=== PATIENT | female | born 1990 | race Caucasian/White ===

== ENCOUNTER 2017-03-05 03:59 | Emergency (ER) | payer OTHER ==
[~2017-03-05 03:59] MED LIST: ALBU8.5H3 INH; CLON0.5T PO; PARO20TA55 PO
[2017-03-05 04:00] VITALS: BP 105/65
--- NOTE | 2017-03-05 04:18 | PHYS DOC ---
General Chief Complaint: CHEST PAIN Stated Complaint: CHEST PAIN Time Seen by MD: 04:05 Source: patient Problems: History of Present Illness Initial Comments Patient here for chest pain. Patient says she's had chest pain for the last 3-4 days. When asked what brought her in this time, she said she wanted to wait to see her own doctor tomorrow, but she felt like she simply couldn't wait. She describes her chest discomfort simply the pain. She is unable to describe it as a crampy sharp or pressure sensation. She says it's in the right central chest, then she says it's also the left central chest, in the left shoulder area, in the left arm, and then over into the left posterior lower chest area. She says the pain tends to move around between these different places doesn't seem to start in one place and go to another. She says she's felt hot and cold with hot flashes tonight. There's no chills. There is no runny nose or sore throat. She says she feels short of breath and she says she feels nauseated. She also says that she's broken out into a sweat with this. She initially denies a cough, but then tells me she is coughing up sputum that is half yellow and half white. She has no abdominal pain. There is no change in bowel or bladder habits. There is no focal extremity or neurologic complaints. Patient has no history of injury or trauma, nor lifting or straining the might involve the chest. Patient's done nothing for this at home over the last several days. She notes no increasing or decreasing factors. She does state she was seen a few weeks ago at [facility] for some abdominal problems which is felt due to constipation, she was told she had some sort of pinched nerve that was pushing up into her chest. She doesn't know any further details. Patient's past medical history is remarkable for anxiety. She is normally on clonazepam and his stopped taking this because it makes it difficult for her to drive, which is a reasonable concern to have. She says she normally has had her tubes tied, but because of irregular periods has had a Depo shot. She is a nonsmoker and nonuser of ethanol. Allergies: Coded Allergies: Sulfa (Sulfonamide Antibiotics) (Verified Adverse Reaction, Intermediate, 09/11/16) Past Medical History Medical History: no pertinent history Psychosocial History: anxiety Social History Smoker: non-smoker Alcohol: none Review of Systems All Other Systems: Reviewed and Negative Physical Exam General Appearance: WD/WN, no apparent distress Ear, Nose, Throat: normal ENT inspection, normal pharynx Neck: full range of motion, supple, normal inspection Respiratory: lungs clear, normal breath sounds, no respiratory distress, other Cardiovascular: regular rate, rhythm, no edema Gastrointestinal: non tender, soft, no organomegaly Back: no CVA tenderness, no vertebral tenderness Extremities: non-tender, normal inspection, no pedal edema Neurologic/Psychiatric: no motor/sensory deficits, alert, normal mood/affect, oriented x 3 Skin: normal color Lymphatic: no adenopathy Comments Generally this well-developed well-nourished white female in no acute distress. She is resting quite comfortably in the exam room. Vitals are as noted. Pertinent findings on physical exam shows ears and throat are grossly clear. Neck is supple without adenopathy or JVD. There's no meningeal signs. Chest is clear to auscultation bilaterally. The patient has equivocal chest wall tenderness to palpation over the left and right costal sternal junction, left inframammary area, and left upper chest. Interestingly, she says a palpation and all the sites actually increases the pain in the left posterior lower chest area. She actually has no tenderness, however, over the latter area. There is no signs of trauma or inflammation about the chest wall. Cardiac vascular exam shows regular rate and rhythm without murmur. The abdomen is soft and nontender without masses or organomegaly. There is no perineal findings. Back shows no CVA tenderness. Extremities show no rashes, cyanosis, or edema. No signs of DVT. Neurologic exam shows her to be awake alert oriented and cooperative. Her affect is mildly flat and she does look to be somewhat anxious. Remainder of physical exam is clinically unremarkable. Orders, Labs, Meds Old chart shows single prior ER visit for health related anxiety. EKG shows sinus 105. Normal axis. No acute ST or T-wave changes. Labs today show a stable CBC and chem profile. Cardiac enzymes are negative. D- dimer is mildly elevated at 0.8. Chest x-ray shows no acute changes per the emergency physician. 0520 Patient resting comfortably, asleep in the ED. When aroused she says her pain is basically unchanged. I discussed with the patient uncertain cause of her discomfort. She is on Depo-Provera Lee, she is a mildly elevated d-dimer with chest pain which cannot definitively be attributed to musculoskeletal or other obvious cause. I do think it's incumbent upon us to obtain a CT angiogram to rule out pulmonary emboli. I've ordered this study accordingly. Patient voices understanding of the need for study and is agreeable to the same. If the study is positive, the patient will certainly require admission. This is negative, I think it's still worth considering admitting the patient. I think she is at very low risk for cardiac disease, but given that she has chest pain of uncertain cause of may be worthwhile to bring her in for cardiac enzyme and stress testing for further reassurance. For anxiety may be playing a role as well. Patient is anticipated to be in the ED past the change of shift, and she will be checked out to the oncoming emergency physician with this plan in mind. I will discuss the change of shift with the patient as well. GIOVANNA REAL MD Mar 05, 2017 04:18
[2017-03-05] MEDS: ASPIRIN 325 MG TABLET PO ONE (04:33)
[2017-03-05 04:43] LABS: BASO % 1 % (0-3); EOS # 0.5 x10^3/uL (0.0-0.7); EOS % 11 % (0-3); HEMATOCRIT 38.2 % (36.0-47.0); HEMOGLOBIN 12.7 g/dL (12.0-15.5); LYMPH # 1.2 x10^3/uL (1.0-4.8); LYMPH % 25 % (24-48); MEAN CORPUSCULAR HEMOGLOBIN 30 pg (25-35); MEAN CORPUSCULAR HGB CONC 33 g/dL (31-37); MEAN CORPUSCULAR VOLUME 90 fL (79-100); MONO # 0.3 x10^3/uL (0.0-1.1); MONO % 7 % (0-9); NEUT # 2.8 x10^3uL (1.8-7.7); NEUT % 56 % (31-73); PLATELET COUNT 221 x10^3/uL (140-400); RED BLOOD COUNT 4.27 x10^6/uL (3.50-5.40); RED CELL DISTRIBUTION WIDTH 13.3 % (11.5-14.5); WHITE BLOOD COUNT 4.9 x10^3/uL (4.0-11.0)
[2017-03-05 04:48] LABS: BACTERIA,URINE 0 /HPF (0-FEW); BILIRUBIN,URINE NEG (NEG); CLARITY,URINE CLEAR; COLOR,URINE YELLOW; GLUCOSE,URINE NEG (NEG); NITRITE,URINE NEG (NEG); RBC,URINE 0 /HPF (0-2); SQUAMOUS EPITHELIAL CELL,UR FEW /LPF; UROBILINOGEN,URINE 0.2 mg/dL (0.2 mg/dL); WBC,URINE OCC /HPF (0-4)
[2017-03-05 05:01] LABS: ALBUMIN 3.7 g/dL (3.4-5.0); ALK PHOS 53 U/L (46-116); ALT (SGPT) 20 U/L (14-59); AMYLASE 53 U/L (25-115); ANION GAP 11 (6-14); AST (SGOT) 11 U/L (15-37); BLOOD UREA NITROGEN 10 mg/dL (7-20); BUN/CREATININE RATIO 14 (6-20); CALCIUM 8.4 mg/dL (8.5-10.1); CARBON DIOXIDE 25 mmol/L (21-32); CHLORIDE 105 mmol/L (98-107); CREATINE KINASE 70 U/L (26-192); CREATININE 0.7 mg/dL (0.6-1.0); GFR 100.4; GLUCOSE 102 mg/dL (70-99); LIPASE 138 U/L (73-393); POTASSIUM 3.6 mmol/L (3.5-5.1); SODIUM 141 mmol/L (136-145); TOTAL BILIRUBIN 0.4 mg/dL (0.2-1.0); TOTAL PROTEIN 7.3 g/dL (6.4-8.2)
[2017-03-05] MEDS: IOHEXOL 300 MG/ML 75 ML VIAL. IV ONE (05:38)
[2017-03-05] MEDS ORDERED: CONTRAST GIVEN MC PRN (05:45)
--- NOTE | 2017-03-05 06:03 | RAD ---
CTA chest with contrast Indication: Chest pain and elevated D-dimer. Axial imaging through the chest was performed after the administration of intravenous contrast. Multiplanar, 3D and MIP reformations were also performed. PQRS STATEMENT One or more of the following individualized dose reduction techniques were utilized for this study: 1.Automated exposure control. 2.Adjustment of the mA and/orkVaccording to patient size. 3.Use of iterative reconstruction technique. No prior studies are available for comparison. Evaluation of the pulmonary arterial system is without evidence of thromboembolism. No filling defects are seen. The thoracic aorta is without evidence of dissection. No pericardial or pleural fluid is identified. No parenchymal infiltrate, nodule or mass is detected. The upper abdomen is unremarkable. Impression: No evidence of pulmonary embolism or thoracic aortic dissection. Electronically signed by: Eduardo Mike MD (Mar 05, 2017 06:02:22)
--- NOTE | 2017-03-05 07:13 | RAD ---
Chest, 2 views, 03/05/2017: History: Chest pain The heart size and pulmonary vascularity are normal. No pulmonary infiltrates are seen. There is no evidence of pleural fluid. IMPRESSION: No acute cardiopulmonary abnormality is detected.
== END 2017-03-05 06:30 | disposition home or self-care (01) ==
LOC: ER 03:59
DX: R07.89 Other chest pain (principal); M25.512 Pain in left shoulder; R79.1 Abnormal coagulation profile; J45.909 Unspecified asthma, uncomplicated; F41.9 Anxiety disorder, unspecified; Z88.2 Allergy status to sulfonamides
CPT/HCPCS: 36415; 71020; 71275; 80053; 81001; 82150; 82553; 83690; 84484; 84703; 85027; 85379; 99285; Q9967; 81025

== ENCOUNTER 2017-04-23 19:45 | Emergency (ER) | payer OTHER ==
[~2017-04-23] VITALS: Ht 154.9 cm; Wt 59.0 kg
[~2017-04-23 19:45] MED LIST changes: -ALBU8.5H3 INH; +ALBU8.5H8 INH; -PARO20TA55 PO; +PARO20TA99 PO
[2017-04-23 19:55] VITALS: BP 95/52
[2017-04-23] MEDS ORDERED: IV NORMAL SALINE 1,000ML 1,000 ML IV ONE (20:30)
[2017-04-23] MEDS ORDERED: CONTRAST GIVEN MC PRN (20:30)
[2017-04-23] MEDS ORDERED: IOHEXOL 300 MG/ML 75 ML VIAL. IV ONE (20:45)
[2017-04-23 21:01] LABS: BASO % 1 % (0-3); EOS # 0.2 x10^3/uL (0.0-0.7); EOS % 4 % (0-3); HEMATOCRIT 36.8 % (36.0-47.0); HEMOGLOBIN 12.7 g/dL (12.0-15.5); LYMPH # 1.8 x10^3/uL (1.0-4.8); LYMPH % 36 % (24-48); MEAN CORPUSCULAR HEMOGLOBIN 30 pg (25-35); MEAN CORPUSCULAR HGB CONC 34 g/dL (31-37); MEAN CORPUSCULAR VOLUME 87 fL (79-100); MONO # 0.3 x10^3/uL (0.0-1.1); MONO % 7 % (0-9); NEUT # 2.6 x10^3uL (1.8-7.7); NEUT % 53 % (31-73); PLATELET COUNT 217 x10^3/uL (140-400); RED BLOOD COUNT 4.21 x10^6/uL (3.50-5.40); RED CELL DISTRIBUTION WIDTH 12.9 % (11.5-14.5)
[2017-04-23 21:11] LABS: ALBUMIN 3.7 g/dL (3.4-5.0); ALBUMIN/GLOBULIN RATIO 1.1 (1.0-1.7); CALCIUM 8.7 mg/dL (8.5-10.1); CREATININE 0.8 mg/dL (0.6-1.0); TOTAL BILIRUBIN 0.4 mg/dL (0.2-1.0); TOTAL PROTEIN 7.1 g/dL (6.4-8.2)
[2017-04-23 21:24] LABS: BILIRUBIN,URINE NEG (NEG); CLARITY,URINE CLEAR; COLOR,URINE YELLOW; GLUCOSE,URINE NEG (NEG); NITRITE,URINE NEG (NEG); UROBILINOGEN,URINE 1 mg/dL (0.2 mg/dL)
[2017-04-23 21:25] LABS: BACTERIA,URINE FEW /HPF (0-FEW); SQUAMOUS EPITHELIAL CELL,UR MOD /LPF; WBC,URINE OCC /HPF (0-4)
[2017-04-23 21:26] LABS: U PREG PATIENT NEGATIVE (NEG)
--- NOTE | 2017-04-23 21:36 | RAD ---
Exam performed: CT scan of the abdomen and pelvis with contrast Clinical Indication: Severe left-sided flank pain and cramping Date of Service: 04/07/2017 no priors Technique: Contiguous helical acquisitions are obtained from the lung bases to the pelvis during intravenous administration of [75 cc of Omnipaque 300]. In addition oral contrast was also given. Sagittal and coronal reformatted images were obtained and reviewed. CT abdomen findings: The lung bases appear essentially clear. Visualized heart is normal The liver, spleen ,gall bladder and pancreas appears unremarkable. Both adrenal glands and bilateral kidneys appear normal with symmetric excretion of contrast via both kidneys. The small bowel loops appear nondilated and unremarkable. There is no retroperitoneal lymphadenopathy or mass lesions. No bowel related inflammatory stranding is noted. There is scattered stool within the colon. Visualized appendix appears normal No obvious stranding is seen in the pericecal region. CT pelvis findings: The pelvic bowel loops are nondilated and unremarkable. The urinary bladder is well distended and normal . Uterus is anteverted. No definite masses seen. Interrogation of bone windows demonstrates no obvious bony abnormality. Sagittal and coronal reformatted images were obtained and reviewed which demonstrate no additional findings. Impression abdomen and pelvis : 1. No acute intra-abdominal or pelvic process is detected. 2. Diffuse scattered stool throughout the colon. Correlate clinically for constipation. PQRS Compliance Statement: One or more of the following individualized dose reduction techniques were utilized for this examination: 1. Automated exposure control 2. Adjustment of the mA and/or kV according to patient size 3. Use of iterative reconstruction technique Electronically signed by: Taya Dailey MD (04/23/2017 9:33 PM)
--- NOTE | 2017-04-23 21:52 | PHYS DOC ---
Past History Past Medical History: Anxiety Past Surgical History: No Surgical History Alcohol Use: None Drug Use: None Adult General Chief Complaint Chief Complaint: MENSTRUAL PAIN/CRAMPS HPI HPI Patient is a 26 year old F who presents with otherwise abdominal pain and some rectal bleeding after having a hard bowel movement. Patient states she's been constipated for the past couple days and today she had a couple hard bowel movements with blood on stool and on the toilet paper while wiping. Patient came in the emergency room for generalized abdominal pain. Patient denies any nausea or vomiting. She denies any fevers. Patient denies any dysuria. Patient has no other complaints. Pertinent exam findings: Mild tenderness to palpation left lower quadrant with bowel sounds heard in all 4 quadrants and the belly was soft, patient deferred rectal exam ED course: She was seen and evaluated in the emergency room a CBC, CMP, lipase, UA, urine break, CT scan abdomen and pelvis were ordered 8: Patient was reevaluated and she was feeling much better explained lab results and CT results the patient and recommended follow-up with her PCP for possible colonoscopy and over the counter stool softeners Pertinent results: CT scan was unremarkable for any acute abnormalities Lab work was unremarkable MDM: After reviewing the chart, CC/HPI/PMH, physical exam, [lab results], [ radiological results], I do not believe the patient has a intra-abdominal emergency warranting further workup and/or admission at this time. I do not believe the patient has a significant rectal bleed warranting emergent blood transfusion at this time. Recommended [id number] stool softeners to help with her constipation which is most likely causing her rectal bleeding. Recommended short-term follow-up with PCP for possible colonoscopy and further evaluation. Patient was comfortable being discharged home. Patient is stable to be discharged. Additional verbal discharge instructions were provided to the patient and that if symptoms get worse or any new symptoms arise that are worrisome to the patient she is to return to the emergency room immediately Review of Systems Review of Systems GEN: Denies fevers, chills, sweats HEENT: Denies blurred vision, sore throat CV: Denies chest pain RESP: Denies shortness of air, cough GI: Denies n/v/d, positive generalized abdominal tenderness and rectal bleeding NEURO: Denies confusion, dizziness MSK: Denies weakness, joint pain/swelling Current Medications Current Medications Current Medications Medications (Trade) Dose Ordered Sig/Greg Start Time Stop Time Status Last Admin Dose Admin Info (Do NOT chart on this entry -- for MONITORING) 1 each PRN DAILY PRN 04/23/17 20:30 04/25/17 20:29 Iohexol (Omnipaque 300 Mg/ml) 75 ml 1X ONCE 04/23/17 20:45 04/23/17 20:46 DC 04/23/17 20:54 75 ML Sodium Chloride 1,000 ml @ 1,000 mls/hr 1X ONCE 04/23/17 20:30 04/23/17 21:29 DC 04/23/17 20:35 1,000 MLS/HR Allergies Allergies Allergies Coded Allergies Type Severity Reaction Last Updated Verified Sulfa (Sulfonamide Antibiotics) Adverse Reaction Intermediate 09/11/16 Yes Physical Exam Physical Exam GEN.: No apparent distress. Alert and oriented. HEENT: Head is normocephalic, atraumatic NECK: Supple. LUNGS: CTAB. HEART: RRR, S1, S2 present. Peripheral pulses intact ABDOMEN: Soft, positive tender to palpation left lower quadrant. Positive bowel sounds. Rectal exam was deferred EXTREMITIES: Without any cyanosis. NEUROLOGIC: Normal speech, normal tone PSYCHIATRIC: Normal affect, normal mood. SKIN: No ulcerations Current Patient Data Vital Signs Vital Signs Date Time Temp Pulse Resp B/P (MAP) Pulse Ox O2 Delivery O2 Flow Rate FiO2 04/23/17 19:55 98.0 90 12 98 Room Air Lab Results Laboratory Tests Test 04/23/17 20:28 04/23/17 20:35 04/23/17 20:38 Urine Collection Type Unknown Urine Color Yellow Urine Clarity Clear Urine pH 6.0 Urine Specific [place] 1.025 Urine Protein Neg (NEG-TRACE) Urine Glucose (UA) Neg mg/dL (NEG) Urine Ketones (Stick) Neg mg/dL (NEG) Urine Blood Trace (NEG) Urine Nitrite Neg (NEG) Urine Bilirubin Neg (NEG) Urine Urobilinogen Dipstick 1 mg/dL (0.2 mg/dL) Urine Leukocyte Esterase Neg (NEG) Urine RBC 1-2 /HPF (0-2) Urine WBC Occ /HPF (0-4) Urine Squamous Epithelial Cells Mod /LPF Urine Bacteria Few /HPF (0-FEW) Urine Test Negative (NEG) White Blood Count 5.0 x10^3/uL (4.0-11.0) Red Blood Count 4.21 x10^6/uL (3.50-5.40) Hemoglobin 12.7 g/dL (12.0-15.5) Hematocrit 36.8 % (36.0-47.0) Mean Corpuscular Volume 87 fL (79-100) Mean Corpuscular Hemoglobin 30 pg (25-35) Mean Corpuscular Hemoglobin Concent 34 g/dL (31-37) Red Cell Distribution Width 12.9 % (11.5-14.5) Platelet Count 217 x10^3/uL (140-400) Neutrophils (%) (Auto) 53 % (31-73) Lymphocytes (%) (Auto) 36 % (24-48) Monocytes (%) (Auto) 7 % (0-9) Eosinophils (%) (Auto) 4 % (0-3) H Basophils (%) (Auto) 1 % (0-3) Neutrophils # (Auto) 2.6 x10^3uL (1.8-7.7) Lymphocytes # (Auto) 1.8 x10^3/uL (1.0-4.8) Monocytes # (Auto) 0.3 x10^3/uL (0.0-1.1) Eosinophils # (Auto) 0.2 x10^3/uL (0.0-0.7) Basophils # (Auto) 0.0 x10^3/uL (0.0-0.2) Sodium Level 142 mmol/L (136-145) Potassium Level 4.0 mmol/L (3.5-5.1) Chloride Level 108 mmol/L (98-107) H Carbon Dioxide Level 27 mmol/L (21-32) Anion Gap 7 (6-14) Blood Urea Nitrogen 13 mg/dL (7-20) Creatinine 0.8 mg/dL (0.6-1.0) Estimated GFR (Cockcroft-Gault) 86.0 BUN/Creatinine Ratio 16 (6-20) Glucose Level 88 mg/dL (70-99) Calcium Level 8.7 mg/dL (8.5-10.1) Total Bilirubin 0.4 mg/dL (0.2-1.0) Aspartate Amino Transferase (AST) 19 U/L (15-37) Alanine Aminotransferase (ALT) 39 U/L (14-59) Alkaline Phosphatase 69 U/L (46-116) Total Protein 7.1 g/dL (6.4-8.2) Albumin 3.7 g/dL (3.4-5.0) Albumin/Globulin Ratio 1.1 (1.0-1.7) Lipase 145 U/L (73-393) POC Urine HCG, Qualitative hcg negative (Negative) EKG EKG [] Radiology/Procedures Radiology/Procedures CT the abdomen and pelvis with contrast: Impression abdomen and pelvis : 1. No acute intra-abdominal or pelvic process is detected. 2. Diffuse scattered stool throughout the colon. Correlate clinically for constipation.[] Course & Med Decision Making Course & Med Decision Making Pertinent Labs and Imaging studies reviewed. (See chart for details) [] Dragon Disclaimer Dragon Disclaimer This chart was dictated in whole or in part using Voice Recognition software in a busy, high-work load, and often noisy Emergency Department environment. It may contain unintended and wholly unrecognized errors or omissions. Departure Departure: Impression: Primary Impression: Abdominal pain Additional Impressions: Rectal bleeding Constipation Disposition: 01 HOME, SELF-CARE Condition: IMPROVED Referrals: JU HEALY (PCP) Patient Instructions: Abdominal Pain (Nonspecific) Additional Instructions: Please follow up with her family doctor next 1-2 days and return if symptoms increase Problem Qualifiers Primary Impression: Abdominal pain Abdominal location: generalized Qualified Codes: R10.84 - Generalized abdominal pain Additional Impressions: Constipation Constipation type: unspecified constipation type Qualified Codes: K59.00 - Constipation, unspecified VAMSHI BA DO Apr 23, 2017 21:52
== END 2017-04-23 22:00 | disposition home or self-care (01) ==
LOC: ER 19:45
DX: K62.5 Hemorrhage of anus and rectum (principal); K59.00 Constipation, unspecified; Z88.2 Allergy status to sulfonamides
CPT/HCPCS: 36415; 74177; 80053; 81001; 81025; 83690; 85027; 96360; 99285; Q9967; J7030

== ENCOUNTER 2017-05-04 11:03 | Emergency (ER) | payer OTHER ==
[~2017-05-04] VITALS: Ht 154.9 cm; Wt 59.0 kg
--- NOTE | 2017-05-04 12:54 | RAD ---
CT of the head without contrast, 05/04/2017: History: Left facial numbness The ventricles are within normal limits in size. There is no shift of the midline structures. There is no evidence of acute intracranial hemorrhage or mass effect. IMPRESSION: The CT of the head without contrast reveals no significant abnormality. PQRS Compliance Statement: One or more of the following individualized dose reduction techniques were utilized for this examination: 1. Automated exposure control 2. Adjustment of the mA and/or kV according to patient size 3. Use of iterative reconstruction technique
--- NOTE | 2017-05-04 12:54 | RAD ---
PA and lateral chest radiographs 05/04/2017. Clinical History: Chest pain.. PA and lateral digital radiographs of the chest were obtained. Comparison study is dated 03/05/2017. The cardiac and mediastinal silhouettes are within normal limits in size and configuration. No pulmonary infiltrate is seen. No pleural effusion or pneumothorax is noted. The osseous structures are grossly intact. Impression: No radiographic evidence of active cardiopulmonary disease.
--- NOTE | 2017-05-04 12:58 | EKG ---
[address] [address] Test Date: 2017-05-04 Test Time: 12:35:16 Pat Name: FCO VAZQUEZ Department: Room: Gender: F Form Setter: GABRIELLA : 1990 Requested By: MARY ELLEN CHAPPELL Order Number: [id number] Reading MD: Evan Bucio Measurements Intervals [place] Rate: 80 P: 61 MS: 160 QRS: 44 QRSD: 82 T: 28 QT: 370 QTc: 430 Interpretive Statements SINUS RHYTHM NONSPECIFIC ST-T WAVE CHANGES. RI6.01 Unconfirmed report Compared to ECG 03/05/2017 04:07:38 Sinus tachycardia no longer present Electronically Signed On 05-07-2017 10:44:16 CDT by Evan Bucio
[2017-05-04 13:19] LABS: BASO % 0 % (0-3); EOS # 0.3 x10^3/uL (0.0-0.7); EOS % 5 % (0-3); HEMATOCRIT 37.8 % (36.0-47.0); HEMOGLOBIN 12.8 g/dL (12.0-15.5); LYMPH # 1.4 x10^3/uL (1.0-4.8); LYMPH % 26 % (24-48); MEAN CORPUSCULAR HEMOGLOBIN 30 pg (25-35); MEAN CORPUSCULAR HGB CONC 34 g/dL (31-37); MEAN CORPUSCULAR VOLUME 89 fL (79-100); MONO # 0.3 x10^3/uL (0.0-1.1); MONO % 5 % (0-9); NEUT # 3.5 x10^3uL (1.8-7.7); NEUT % 64 % (31-73); PLATELET COUNT 227 x10^3/uL (140-400); RED BLOOD COUNT 4.26 x10^6/uL (3.50-5.40); WHITE BLOOD COUNT 5.5 x10^3/uL (4.0-11.0)
[2017-05-04 13:28] LABS: ALBUMIN 3.7 g/dL (3.4-5.0); CALCIUM 8.7 mg/dL (8.5-10.1); CREATININE 0.6 mg/dL (0.6-1.0); GFR 119.9; POTASSIUM 3.8 mmol/L (3.5-5.1); TOTAL BILIRUBIN 0.5 mg/dL (0.2-1.0); TOTAL PROTEIN 7.3 g/dL (6.4-8.2)
[2017-05-04] MEDS ORDERED: CONTRAST GIVEN MC PRN (14:30)
[2017-05-04] MEDS ORDERED: IOHEXOL 300 MG/ML 75 ML VIAL. IV ONE (14:30)
--- NOTE | 2017-05-04 14:53 | PHYS DOC ---
Past History Past Medical History: Asthma Past Surgical History: Tubal ligation Alcohol Use: None Drug Use: None Adult General Chief Complaint Chief Complaint: MULTIPLE COMPLAINTS HPI HPI Patient is a 26 year old female who presents with 2 days of intermittent chest discomfort randomly travels the right to the left side of her chest nonexertional dull and nature mild shortness of breath associated with it. No cough fever or leg pain or swelling. No prior history of blood clots in legs or lungs. Not a smoker does not use control pills. Was seen at another local ER recently with a workup that we are not certain what the exact details were that she was sent home. She also complained of some paresthesias to the hands and feet to the lips are little bit to her face no headache or blurred vision no symptoms of since resolved. She has no complaints of chest pain currently. Does admit to significant anxiety disorder. Review of Systems Review of Systems Constitutional: Denies fever or chills [] Eyes: Denies change in visual acuity, redness, or eye pain [] HENT: Denies nasal congestion or sore throat [] Respiratory: Denies cough or shortness of breath [] Cardiovascular: No additional information not addressed in HPI [] GI: Denies abdominal pain, nausea, vomiting, bloody stools or diarrhea [] : Denies dysuria or hematuria [] Musculoskeletal: Denies back pain or joint pain [] Integument: Denies rash or skin lesions [] Neurologic: Denies headache, focal weakness or sensory changes [] Endocrine: Denies polyuria or polydipsia [ All systems negative except as mentioned in history present illness.] Current Medications Current Medications Current Medications Medications (Trade) Dose Ordered Sig/Greg Start Time Stop Time Status Last Admin Dose Admin Info (Do NOT chart on this entry -- for MONITORING) 1 each PRN DAILY PRN 05/04/17 14:30 05/06/17 14:29 Iohexol (Omnipaque 300 Mg/ml) 75 ml 1X ONCE 05/04/17 14:30 05/04/17 14:31 DC 05/04/17 14:36 75 ML Allergies Allergies Allergies Coded Allergies Type Severity Reaction Last Updated Verified Sulfa (Sulfonamide Antibiotics) Adverse Reaction Intermediate 09/11/16 Yes Physical Exam Physical Exam Constitutional: Well developed, well nourished, no acute distress, non-toxic appearance. [] HENT: Normocephalic, atraumatic, bilateral external ears normal, oropharynx moist, no oral exudates, nose normal. [] Eyes: PERRLA, EOMI, conjunctiva normal, no discharge. [] Neck: Normal range of motion, no tenderness, supple, no stridor. [] Cardiovascular:Heart rate regular rhythm, no murmur [] Lungs & Thorax: Bilateral breath sounds clear to auscultation [] Abdomen: Bowel sounds normal, soft, no tenderness, no masses, no pulsatile masses. [] Skin: Warm, dry, no erythema, no rash. [] Back: No tenderness, no CVA tenderness. [] Extremities: No tenderness, no cyanosis, no clubbing, ROM intact, no edema. [] Neurologic: Alert and oriented X 3, normal motor function, normal sensory function, no focal deficits noted. [] Psychologic: Affect normal, judgement normal, mood normal. [] Current Patient Data Vital Signs Vital Signs Date Time Temp Pulse Resp B/P (MAP) Pulse Ox O2 Delivery O2 Flow Rate FiO2 05/04/17 11:10 98.4 85 16 98 Room Air Lab Results Laboratory Tests Test 05/04/17 12:48 White Blood Count 5.5 x10^3/uL (4.0-11.0) Red Blood Count 4.26 x10^6/uL (3.50-5.40) Hemoglobin 12.8 g/dL (12.0-15.5) Hematocrit 37.8 % (36.0-47.0) Mean Corpuscular Volume 89 fL (79-100) Mean Corpuscular Hemoglobin 30 pg (25-35) Mean Corpuscular Hemoglobin Concent 34 g/dL (31-37) Red Cell Distribution Width 13.0 % (11.5-14.5) Platelet Count 227 x10^3/uL (140-400) Neutrophils (%) (Auto) 64 % (31-73) Lymphocytes (%) (Auto) 26 % (24-48) Monocytes (%) (Auto) 5 % (0-9) Eosinophils (%) (Auto) 5 % (0-3) H Basophils (%) (Auto) 0 % (0-3) Neutrophils # (Auto) 3.5 x10^3uL (1.8-7.7) Lymphocytes # (Auto) 1.4 x10^3/uL (1.0-4.8) Monocytes # (Auto) 0.3 x10^3/uL (0.0-1.1) Eosinophils # (Auto) 0.3 x10^3/uL (0.0-0.7) Basophils # (Auto) 0.0 x10^3/uL (0.0-0.2) D-Dimer (Zita) 0.79 mg/L (0.00-0.50) H Sodium Level 138 mmol/L (136-145) Potassium Level 3.8 mmol/L (3.5-5.1) Chloride Level 105 mmol/L (98-107) Carbon Dioxide Level 26 mmol/L (21-32) Anion Gap 7 (6-14) Blood Urea Nitrogen 14 mg/dL (7-20) Creatinine 0.6 mg/dL (0.6-1.0) Estimated GFR (Cockcroft-Gault) 119.9 BUN/Creatinine Ratio 23 (6-20) H Glucose Level 90 mg/dL (70-99) Calcium Level 8.7 mg/dL (8.5-10.1) Total Bilirubin 0.5 mg/dL (0.2-1.0) Aspartate Amino Transferase (AST) 21 U/L (15-37) Alanine Aminotransferase (ALT) 33 U/L (14-59) Alkaline Phosphatase 64 U/L (46-116) Troponin I Quantitative < 0.017 ng/mL (0-0.055) Total Protein 7.3 g/dL (6.4-8.2) Albumin 3.7 g/dL (3.4-5.0) Albumin/Globulin Ratio 1.0 (1.0-1.7) EKG EKG [] Radiology/Procedures Radiology/Procedures CT head negative, chest x-ray negative, CTA chest negative for PE per radiology report [] Course & Med Decision Making Course & Med Decision Making Pertinent Labs and Imaging studies reviewed. (See chart for details) Unremarkable EKG chest x-ray labs except for an elevated d-dimer. We will obtain a CT of the chest and patient will likely be able to go home unless her some significant pathology seen on the scan. [] Dragon Disclaimer Dragon Disclaimer This chart was dictated in whole or in part using Voice Recognition software in a busy, high-work load, and often noisy Emergency Department environment. It may contain unintended and wholly unrecognized errors or omissions. Departure Departure: Impression: Primary Impression: Chest pain Additional Impression: Anxiety about health Disposition: 01 HOME, SELF-CARE Condition: STABLE Referrals: JU HEALY (PCP) Patient Instructions: Anxiety and Panic Attacks, [id number], Chest Pain ( Nonspecific), [id number] Problem Qualifiers MARY ELLEN CHAPPELL MD May 04, 2017 14:52
--- NOTE | 2017-05-04 14:55 | RAD ---
CTA of the chest with contrast, 05/04/2017: History: Chest pain, elevated d-dimer Multidetector CT imaging was performed following an IV bolus injection of iodinated contrast material. Multiplanar reconstructions were produced including coronal MIP images. The central pulmonary arteries are well opacified and no filling defects are seen to suggest pulmonary emboli. The thoracic aorta is of normal caliber. There is a small amount of residual thymic tissue is noted in the anterior mediastinum. No mediastinal or hilar adenopathy is evident. No pulmonary infiltrate is seen. There is no evidence of pleural fluid. IMPRESSION: No CT evidence of central pulmonary emboli. PQRS Compliance Statement: One or more of the following individualized dose reduction techniques were utilized for this examination: 1. Automated exposure control 2. Adjustment of the mA and/or kV according to patient size 3. Use of iterative reconstruction technique
[2017-05-04 15:15] VITALS: BP 145/82
== END 2017-05-04 15:25 | disposition home or self-care (01) ==
LOC: ER 11:03
DX: R07.89 Other chest pain (principal); F41.9 Anxiety disorder, unspecified; J45.909 Unspecified asthma, uncomplicated; Z88.2 Allergy status to sulfonamides
CPT/HCPCS: 36415; 70450; 71020; 71275; 80053; 84484; 85027; 85379; 93005; 99285; Q9967

== ENCOUNTER 2018-01-30 21:21 | Emergency (ER) | payer OTHER ==
[~2018-01-30] VITALS: Ht 154.9 cm; Wt 59.0 kg
[2018-01-30] MEDS ORDERED: ACETAMINOPHEN 325 MG TABLET PO ONE (22:00)
[2018-01-30] MEDS ORDERED: IBUPROFEN 600 MG TABLET. PO ONE (22:00)
[2018-01-30 22:32] LABS: INFLUENZA A PATIENT NEGATIVE (NEGATIVE); INFLUENZA B PATIENT POSITIVE (NEGATIVE)
[2018-01-30] MEDS ORDERED: OSELTAMIVIR 75 MG CAPSULE PO ONE (23:00)
[2018-01-30] MEDS ORDERED: ONDA4TAB10 SL (23:04)
[2018-01-30] MEDS ORDERED: IBUP600T16 PO (23:04)
[2018-01-30] MEDS ORDERED: OSEL75CA PO (23:04)
--- NOTE | 2018-01-30 23:04 | PHYS DOC ---
Past History Past Medical History: Asthma Past Surgical History: Tubal ligation Alcohol Use: None Drug Use: None Adult General Chief Complaint Chief Complaint: FEVER HPI HPI Patient is a 27-year-old female who presents here today secondary to cough cold congestion nausea fever for 2 days. Patient reports decreased by mouth appetite. Patient reports mild headache with fevers. Patient reports she took ibuprofen approximately 5 hours prior to arrival to the ER. Patient denies any chest pain shortness of breath dysuria frequency urgency. Patient denies any diarrhea. Patient has any vomiting. Patient has sick family contacts at home. Patient reports her younger son is also sick. Review of systems: Constitutional: Denies fever or chills Eyes: Denies change in visual acuity, redness, or eye pain HENT: Denies nasal congestion or sore throat Respiratory: Denies cough or shortness of breath All other systems were reviewed and found to be within normal limits, except as documented in this note. Physical exam: Constitutional: Well developed, well nourished, no acute distress, non-toxic appearance. HENT: Normocephalic, atraumatic, bilateral external ears normal, nose normal. Eyes: PERRLA, EOMI, conjunctiva normal, no discharge. Neck: Normal range of motion, no tenderness, supple, no stridor. Cardiovascular: Heart rate regular rhythm, tachycardic Lungs & Thorax: Bilateral breath sounds clear to auscultation Abdomen: No abdominal distention. Skin: Warm, dry, no erythema, no rash. Back: Normal spinal curvature Extremities: No tenderness, no cyanosis, no clubbing, ROM intact, no edema. Neurologic: Alert and oriented X 3, normal motor function, normal sensory function, no focal deficits noted. Psychologic: Affect normal, judgement normal, mood normal. Patient's ER physical exam was most remarkable: Nontoxic appearing. Alert awake and oriented 3. Normal respiratory rate. Resting comfortably. Chest x-ray as interpreted by ER physician reveals: No infiltrates or effusions Labs reviewed: Positive for influenza Assessment and plan: 1. 19-year-old female who presents here today who was found to be positive for influenza. Patient be given a prescription for Tamiflu. Patient's clinically and hemodynamically stable and nontoxic appearing in any way. Patient is not tachypneic. Patient's pulse ox is 99% on room air. Patient's clinically hemodynamically stable for discharged home. Precautions been reviewed with the patient regarding herself and her son return the ER face starts feeling any shortness of breath, chest pain or any other place. 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 Current Medications Current Medications Current Medications Medications (Trade) Dose Ordered Sig/Greg Start Time Stop Time Status Last Admin Dose Admin Acetaminophen (Tylenol) 650 mg 1X ONCE 01/30/18 22:00 01/30/18 22:01 DC 01/30/18 22:05 650 MG Ibuprofen (Motrin) 600 mg 1X ONCE 01/30/18 22:00 01/30/18 22:01 DC 01/30/18 22:05 600 MG Oseltamivir Phosphate (Tamiflu) 75 mg 1X ONCE 01/30/18 23:00 01/30/18 23:01 UNV Allergies Allergies Allergies Coded Allergies Type Severity Reaction Last Updated Verified Sulfa (Sulfonamide Antibiotics) Adverse Reaction Intermediate 09/11/16 Yes Current Patient Data Vital Signs Vital Signs Date Time Temp Pulse Resp B/P (MAP) Pulse Ox O2 Delivery O2 Flow Rate FiO2 01/30/18 21:21 102.3 109 20 99 Room Air Lab Results Laboratory Tests Test 01/30/18 21:53 Influenza Type A (Rapid) Negative (NEGATIVE) Influenza Type B (Rapid) Positive (NEGATIVE) EKG EKG [] Radiology/Procedures Radiology/Procedures [] Course & Med Decision Making Course & Med Decision Making Pertinent Labs and Imaging studies reviewed. (See chart for details) [] Dragon Disclaimer Dragon Disclaimer This electronic medical record was generated, in whole or in part, using a voice recognition dictation system. Departure Departure: Impression: Primary Impression: Influenza B Disposition: HOME, SELF-CARE Condition: IMPROVED Referrals: JU HEALY (PCP) Patient Instructions: Influenza Virus Vaccine injection (Fluarix) Scripts Ondansetron (ZOFRAN ODT) 4 Mg Tab.rapdis 1 TAB SL Q8HRS for NAUSEA, #15 TAB Prov: ROSEMARY BOWLES MD 01/30/18 Ibuprofen (IBUPROFEN) 600 Mg Tablet 600 MG PO QID Y for PAIN, #20 Prov: ROSEMARY BOWLES MD 01/30/18 Oseltamivir Phosphate (TAMIFLU) 75 Mg Capsule 1 CAP PO BID, #10 CAP Prov: ROSEMARY BOWLES MD 01/30/18 ROSEMARY BOWLES MD Jan 30, 2018 23:04
[2018-01-30 23:35] VITALS: BP 103/64
--- NOTE | 2018-01-31 07:44 | RAD ---
2 views of the Chest 01/30/2018 11:39 PM Indication: COUGH, FEVER Comparison: 2 views the chest May 04, 2017 Findings: There is no focal consolidation or infiltrate identified. There is no effusion or pneumothorax. The cardiomediastinal silhouette and pulmonary vasculature are within normal limits. No osseous abnormality is identified. Impression: No evidence of acute cardiopulmonary process.
== END 2018-01-30 23:40 | disposition home or self-care (01) ==
LOC: ER 21:21
DX: J10.1 Influenza due to other identified influenza virus with other respiratory manifestations (principal); J45.909 Unspecified asthma, uncomplicated; Z88.2 Allergy status to sulfonamides
CPT/HCPCS: 71046; 87804; 99285-25

== ENCOUNTER 2018-08-31 17:32 | Emergency (ER) | payer OTHER ==
[~2018-08-31] VITALS: Ht 154.9 cm; Wt 59.0 kg
[2018-08-31 17:32] VITALS: BP 102/62
[~2018-08-31 17:32] MED LIST changes: +IBUP600T16 PO; +ONDA4TAB10 SL; +OSEL75CA PO
--- NOTE | 2018-08-31 17:56 | PHYS DOC ---
Past History Past Medical History: Asthma Past Surgical History: Tubal ligation Alcohol Use: None Drug Use: None Adult General Chief Complaint Chief Complaint: RIB PAIN HPI HPI 28-year-old female presents with one-week history of left upper quadrant and rib pain. She describes the pain as an inside cramping sensation that is intermittent. It is mild to moderate in nature. It comes and goes with no particular pattern. It has seemed to have gotten worse the last 2 or 3 days. She also states that that scan is pruritic. She has not had a rash, but there is one small pink perez in the area that she noticed yesterday. She denies fever or chills at home. She's had no nausea, vomiting, diarrhea, or constipation. She does have a history of kidney stones many years ago. She also admits to some increased urinary frequency. She denies any trauma or particular inciting event that caused the pain. Review of Systems Review of Systems Constitutional: Denies fever or chills [] Eyes: Denies change in visual acuity, redness, or eye pain [] HENT: Denies nasal congestion or sore throat [] Respiratory: Denies cough or shortness of breath [] Cardiovascular: No additional information not addressed in HPI [] GI: Left upper quadrant pain[] : Denies dysuria or hematuria [] Musculoskeletal: Denies back pain or joint pain [] Integument: Denies rash or skin lesions [] Neurologic: Denies headache, focal weakness or sensory changes [] Endocrine: Denies polyuria or polydipsia [] All other systems were reviewed and found to be within normal limits, except as documented in this note. Allergies Allergies Allergies Coded Allergies Type Severity Reaction Last Updated Verified Sulfa (Sulfonamide Antibiotics) Adverse Reaction Intermediate 09/11/16 Yes Physical Exam Physical Exam Constitutional: Well developed, well nourished, no acute distress, non-toxic appearance. [] HENT: Normocephalic, atraumatic, bilateral external ears normal, oropharynx moist, no oral exudates, nose normal. [] Eyes: PERRLA, EOMI, conjunctiva normal, no discharge. [] Neck: Normal range of motion, no tenderness, supple, no stridor. [] Cardiovascular:Heart rate regular rhythm, no murmur [] Lungs & Thorax: Bilateral breath sounds clear to auscultation [] Abdomen: Bowel sounds normal, soft, no tenderness, no masses, no pulsatile masses. [] Skin: One small 5 mm pink colored macule just below the left breast. Appears to be consistent with insect bite.[] Back: No tenderness, no CVA tenderness. [] Extremities: No tenderness, no cyanosis, no clubbing, ROM intact, no edema. [] Neurologic: Alert and oriented X 3, normal motor function, normal sensory function, no focal deficits noted. [] Psychologic: Affect normal, judgement normal, mood normal. [] EKG EKG [] Radiology/Procedures Radiology/Procedures [] Impressions: KUB Clinical Indication: Left upper quadrant pain and cramping Comparison: CT abdomen and pelvis with contrast, April 23, 2017. Findings: There is prominent stool in the ascending colon. There is scattered air and stool in the transverse and proximal descending colon. There is minimal stool in the rectum. There are no dilated small bowel loops. There is air-filled small bowel in the right of midline lower abdomen. No obvious organomegaly. There are a couple of phleboliths in the pelvis. Bones unremarkable. IMPRESSION: Nonobstructive bowel gas pattern. Electronically signed by: Yohannes Garcia MD (08/31/2018 6:19 PM) [facility] DICTATED AND SIGNED BY: YOHANNES GARCIA MD DATE: 08/31/181816 CC: TOSHA CHAVEZ DO; JU HEALY Course & Med Decision Making Course & Med Decision Making Pertinent Labs and Imaging studies reviewed. (See chart for details) The patient's abdominal x-ray shows stool retention in the ascending colon. There is a gas bubble at the splenic flexure. It is possible this is discomfort related to constipation and retained gas. Labs are pending. Asians labs are unremarkable. Her urinalysis is contaminated with squamous epithelials. She is negative for nitrate and trace for leukocyte esterase. I do not believe she has urinary tract infection. I will advise that she consider a bowel cleanout at home. She is stable for discharge at this time. [] Dragon Disclaimer Dragon Disclaimer This electronic medical record was generated, in whole or in part, using a voice recognition dictation system. Departure Departure: Referrals: JU HEALY (PCP) TOSHA CHAVEZ DO Aug 31, 2018 17:56
--- NOTE | 2018-08-31 18:22 | RAD ---
KUB Clinical Indication: Left upper quadrant pain and cramping Comparison: CT abdomen and pelvis with contrast, April 23, 2017. Findings: There is prominent stool in the ascending colon. There is scattered air and stool in the transverse and proximal descending colon. There is minimal stool in the rectum. There are no dilated small bowel loops. There is air-filled small bowel in the right of midline lower abdomen. No obvious organomegaly. There are a couple of phleboliths in the pelvis. Bones unremarkable. IMPRESSION: Nonobstructive bowel gas pattern. Electronically signed by: Yohannes Funez MD (08/31/2018 6:19 PM) [facility]
[2018-08-31] MEDS ORDERED: IV NORMAL SALINE 1,000ML 1,000 ML IV ONE (18:30)
[2018-08-31 18:31] LABS: BASO % 0 % (0-3); EOS # 0.1 x10^3/uL (0.0-0.7); EOS % 2 % (0-3); HEMATOCRIT 42.2 % (36.0-47.0); HEMOGLOBIN 14.3 g/dL (12.0-15.5); LYMPH # 1.8 x10^3/uL (1.0-4.8); LYMPH % 34 % (24-48); MEAN CORPUSCULAR HEMOGLOBIN 30 pg (25-35); MEAN CORPUSCULAR HGB CONC 34 g/dL (31-37); MEAN CORPUSCULAR VOLUME 89 fL (79-100); MONO # 0.3 x10^3/uL (0.0-1.1); MONO % 6 % (0-9); NEUT % 58 % (31-73); PLATELET COUNT 245 x10^3/uL (140-400); RED BLOOD COUNT 4.74 x10^6/uL (3.50-5.40); RED CELL DISTRIBUTION WIDTH 13.1 % (11.5-14.5); WHITE BLOOD COUNT 5.2 x10^3/uL (4.0-11.0)
[2018-08-31 18:40] LABS: BILIRUBIN,URINE NEG (NEG); CLARITY,URINE HAZY; COLOR,URINE YELLOW; GLUCOSE,URINE NEG (NEG); NITRITE,URINE NEG (NEG); UROBILINOGEN,URINE 1 mg/dL (0.2 mg/dL)
[2018-08-31 18:41] LABS: ALBUMIN 3.9 g/dL (3.4-5.0); BACTERIA,URINE MOD /HPF (0-FEW); CREATININE 0.6 mg/dL (0.6-1.0); GFR 118.2; POTASSIUM 3.7 mmol/L (3.5-5.1); SQUAMOUS EPITHELIAL CELL,UR MANY /LPF; TOTAL BILIRUBIN 0.3 mg/dL (0.2-1.0)
== END 2018-08-31 18:54 | disposition home or self-care (01) ==
LOC: ER 17:32
DX: R10.12 Left upper quadrant pain (principal); R07.81 Pleurodynia; K59.00 Constipation, unspecified; J45.909 Unspecified asthma, uncomplicated; Z98.51 Tubal ligation status
CPT/HCPCS: 36415; 74018; 80053; 81001; 85025; 87086; 99285-25; J7030

== ENCOUNTER 2019-11-26 17:33 | Emergency (ER) | payer OTHER ==
[~2019-11-26] VITALS: Ht 154.9 cm; Wt 63.5 kg
[~2019-11-26 17:33] MED LIST changes: +ALBU2.5V8 INH; -ALBU8.5H8 INH
[2019-11-26 19:20] LABS: U PREG PATIENT NEGATIVE (NEG)
[2019-11-26 19:23] LABS: BACTERIA,URINE 0 /HPF (0-FEW); BILIRUBIN,URINE NEG (NEG); CLARITY,URINE CLEAR; COLOR,URINE YELLOW; GLUCOSE,URINE NEG (NEG); NITRITE,URINE NEG (NEG); RBC,URINE OCC /HPF (0-2); SQUAMOUS EPITHELIAL CELL,UR FEW /LPF; UROBILINOGEN,URINE 0.2 mg/dL (0.2 mg/dL); WBC,URINE 0 /HPF (0-4)
[2019-11-26] MEDS ORDERED: CIPR500T94 PO (19:34)
--- NOTE | 2019-11-26 19:34 | PHYS DOC ---
Past History Past Medical History: Asthma Past Surgical History: Tubal ligation Alcohol Use: None Drug Use: None Adult General Chief Complaint Chief Complaint: ABDOMINAL PAIN HPI HPI She is a 29-year-old female who presents with some low back pain dysuria and some blood on the tissue when she wipes. She states is been going on for a few days. She denies any flank pain. She denies any nausea or vomiting. She denies any fever chills or sweats. She denies vaginal discharge or dyspareunia.[] Review of Systems Review of Systems Constitutional: Denies fever or chills [] Eyes: Denies change in visual acuity, redness, or eye pain [] HENT: Denies nasal congestion or sore throat [] Respiratory: Denies cough or shortness of breath [] Cardiovascular: No additional information not addressed in HPI [] GI: Denies abdominal pain, nausea, vomiting, bloody stools or diarrhea [] : Per history of present illness[] Musculoskeletal: Denies back pain or joint pain [] Integument: Denies rash or skin lesions [] Neurologic: Denies headache, focal weakness or sensory changes [] Endocrine: Denies polyuria or polydipsia [] All other systems were reviewed and found to be within normal limits, except as documented in this note. Allergies Allergies Allergies Coded Allergies Type Severity Reaction Last Updated Verified Sulfa (Sulfonamide Antibiotics) Adverse Reaction Intermediate 09/11/16 Yes Physical Exam Physical Exam Constitutional: Well developed, well nourished, no acute distress, non-toxic appearance. [] HENT: Normocephalic, atraumatic, bilateral external ears normal, oropharynx moist, no oral exudates, nose normal. [] Eyes: PERRLA, EOMI, conjunctiva normal, no discharge. [] Neck: Normal range of motion, no tenderness, supple, no stridor. [] Cardiovascular:Heart rate regular rhythm, no murmur [] Lungs & Thorax: Bilateral breath sounds clear to auscultation [] Abdomen: Bowel sounds normal, soft, no tenderness, no masses, no pulsatile masses. [] Skin: Warm, dry, no erythema, no rash. [] Back: No tenderness, no CVA tenderness. [] Extremities: No tenderness, no cyanosis, no clubbing, ROM intact, no edema. [] Neurologic: Alert and oriented X 3, normal motor function, normal sensory function, no focal deficits noted. [] Psychologic: Affect normal, judgement normal, mood normal. [] Current Patient Data Vital Signs Vital Signs Date Time Temp Pulse Resp B/P (MAP) Pulse Ox O2 Delivery O2 Flow Rate FiO2 11/26/19 18:56 79 16 91/50 (64) 100 Room Air Lab Results Laboratory Tests Test 11/26/19 18:38 Urine Collection Type Unknown Urine Color Yellow Urine Clarity Clear Urine pH 7.0 Urine Specific Eckley 1.025 Urine Protein Neg (NEG-TRACE) Urine Glucose (UA) Neg mg/dL (NEG) Urine Ketones (Stick) Neg mg/dL (NEG) Urine Blood Mod (NEG) Urine Nitrite Neg (NEG) Urine Bilirubin Neg (NEG) Urine Urobilinogen Dipstick 0.2 mg/dL (0.2 mg/dL) Urine Leukocyte Esterase Neg (NEG) Urine RBC Occ /HPF (0-2) Urine WBC 0 /HPF (0-4) Urine Squamous Epithelial Cells Few /LPF Urine Bacteria 0 /HPF (0-FEW) Urine Test Negative (NEG) EKG EKG [] Radiology/Procedures Radiology/Procedures [] Course & Med Decision Making Course & Med Decision Making Pertinent Labs and Imaging studies reviewed. (See chart for details) [] Dragon Disclaimer Dragon Disclaimer This electronic medical record was generated, in whole or in part, using a voice recognition dictation system. Departure Departure: Impression: Primary Impression: Hematuria Disposition: HOME, SELF-CARE Condition: STABLE Referrals: JU HEALY (PCP) Patient Instructions: Hematuria, Adult, Urinary Tract Infection Additional Instructions: Drink plenty of fluids. Return to the emergency department with any new or concerning symptoms Scripts Ciprofloxacin Hcl (CIPRO) 500 Mg Tablet 1 TAB PO BID for UTI, #10 TAB Prov: SARA SAHU DO 11/26/19 Problem Qualifiers Primary Impression: Hematuria Hematuria type: gross Qualified Codes: R31.0 - Gross hematuria SARA SAHU DO Nov 26, 2019 19:34
[2019-11-26 19:37] VITALS: BP 87/49
== END 2019-11-26 19:38 | disposition home or self-care (01) ==
LOC: ER 17:33
DX: R31.0 Gross hematuria (principal); M54.5 Low back pain; R30.0 Dysuria; J45.909 Unspecified asthma, uncomplicated; Z98.51 Tubal ligation status; Z88.2 Allergy status to sulfonamides
CPT/HCPCS: 81001; 81025; 99284

== ENCOUNTER 2021-12-18 11:18 | Emergency (ER) | payer OTHER ==
[~2021-12-18] VITALS: Ht 154.9 cm; Wt 60.3 kg
[~2021-12-18 11:18] MED LIST changes: +CIPR500T94 PO
--- NOTE | 2021-12-18 11:58 | EKG ---
[address] [address] Test Date: 2021-12-18 Test Time: 11:46:29 Pat Name: FCO VAZQUEZ Department: Room: Gender: F [employer] Associate: GABRIELLA : 1990 Requested By: TOSHA CHAVEZ Order Number: [id number] Reading MD: Evan Bucio Measurements Intervals [place] Rate: 81 P: 66 MT: 150 QRS: 48 QRSD: 88 T: 22 QT: 454 QTc: 528 Interpretive Statements SINUS RHYTHM PROLONGED QT Electronically Signed On 12-20-2021 12:52:59 [employer] by Evan Bucio
--- NOTE | 2021-12-18 11:59 | PHYS DOC ---
Past History Past Medical History: Asthma Past Surgical History: Tubal ligation Alcohol Use: None Drug Use: None General Adult EDM: Chief Complaint: MULTIPLE COMPLAINTS HPI: HPI: 31-year-old female presents with palpitations and shortness of breath. Patient was diagnosed Covid positive on the , 11 days ago. Most of her symptoms have resolved. She has been having feeling of high heart rate and being more out of breath for last few days. She has not had a fever. No history of cardiac problems. She was not vaccinated against COVID-19. Review of Systems: Review of Systems: Constitutional: Denies fever or chills Eyes: Denies change in visual acuity HENT: Denies nasal congestion or sore throat Respiratory: Intermittent shortness of breath Cardiovascular: Palpitations GI: Denies abdominal pain, nausea, vomiting, bloody stools or diarrhea : Denies dysuria Musculoskeletal: Denies back pain or joint pain Integument: Denies rash Neurologic: Denies headache, focal weakness or sensory changes Endocrine: Denies polyuria or polydipsia Lymphatic: Denies swollen glands Psychiatric: Denies depression or anxiety Allergies: Allergies: Allergies Coded Allergies Type Severity Reaction Last Updated Verified Sulfa (Sulfonamide Antibiotics) Adverse Reaction Intermediate 09/11/16 Yes Physical Exam: PE: Constitutional: Well developed, well nourished, no acute distress, non-toxic appearance. [] HENT: Normocephalic, atraumatic, bilateral external ears normal, oropharynx moist, no oral exudates, nose normal. [] Eyes: PERRLA, EOMI, conjunctiva normal, no discharge. [] Neck: Normal range of motion, no tenderness, supple, no stridor. [] Cardiovascular: Heart rate 81, regular rhythm, no murmur [] Lungs & Thorax: Bilateral breath sounds clear to auscultation [] Abdomen: Bowel sounds normal, soft, no tenderness, no masses, no pulsatile masses. [] Skin: Warm, dry, no erythema, no rash. [] Back: No tenderness, no CVA tenderness. [] Extremities: No tenderness, no cyanosis, no clubbing, ROM intact, no edema. [] Neurologic: Alert and oriented X 3, normal motor function, normal sensory function, no focal deficits noted. [] Psychologic: Affect normal, judgement normal, mood normal. [] EKG: EKG: Sinus rhythm, rate 81, normal axis, no ST elevation or depression QTC 528. [] Radiology/Procedures: Radiology/Procedures: [] Impressions: EXAM: Chest, single view. HISTORY: Shortness of breath. COMPARISON: 01/30/2018 FINDINGS: A frontal view of the chest is obtained. There is bilateral lower lobe interstitial infiltrate. There is no consolidation, pleural effusion or pneumothorax. The heart is normal in size. IMPRESSION: Bilateral lower lobe pneumonia. Follow-up to confirm resolution. Electronically signed by: Renuka Connor MD (12/18/2021 12:01 PM) [facility] DICTATED AND SIGNED BY: RENUKA CONNOR MD DATE: 12/18/21 1200 CC: TOSHA CHAVEZ DO; JU HEALY ~MTH0 0 Heart Score: C/O Chest Pain: No Risk Factors: Risk Factors: DM, Current or recent (<one month) smoker, HTN, HLP, family history of CAD, obesity. Risk Scores: Score 0 - 3: 2.5% MACE over next 6 weeks - Discharge Home Score 4 - 6: 20.3% MACE over next 6 weeks - Admit for Clinical Observation Score 7 - 10: 72.7% MACE over next 6 weeks - Early Invasive Strategies Course & Med Decision Making: Course & Med Decision Making Pertinent Labs and Imaging studies reviewed. (See chart for details) The patient's labs are unremarkable. Her chest x-ray does show bilateral lower lobe interstitial infiltrate. This is likely from her COVID-19 diagnosis but I will treat her with azithromycin as an abundance of caution. Her EKG is unremarkable except for prolonged QT. Troponin is normal. I advised that she follow-up with her primary care physician for resolution of her pneumonia. We have not seen any arrhythmias in the ER. She is stable for discharge at this time. [] Dragon Disclaimer: Dragdino Disclaimer: This electronic medical record was generated, in whole or in part, using a voice recognition dictation system. Departure Departure: Impression: Primary Impression: Pneumonia Qualified Codes: J18.9 - Pneumonia, unspecified organism Additional Impression: COVID-19 Disposition: HOME / SELF CARE / HOMELESS Condition: STABLE Referrals: JU HEALY (PCP) Patient Instructions: Pneumonia, Adult, [id number] Scripts Doxycycline Hyclate (DOXYCYCLINE HYCLATE) 100 Mg Tablet 1 TAB PO BID for pneumonia for 5 Days, #10 TAB Prov: TOSHA CHAVEZ DO 12/18/21 Amoxicillin/Potassium Clav (AUGMENTIN 875-125 TABLET) 1 Each Tablet 1 TAB PO BID for pneumonia for 5 Days, #10 TAB 0 Refills Prov: TOSHA CHAVEZ DO 12/18/21 TOSHA CHAVEZ DO Dec 18, 2021 11:59
--- NOTE | 2021-12-18 12:03 | RAD ---
EXAM: Chest, single view. HISTORY: Shortness of breath. COMPARISON: 01/30/2018 FINDINGS: A frontal view of the chest is obtained. There is bilateral lower lobe interstitial infiltr ate. There is no consolidation, pleural effusion or pneumothorax. The heart is normal in size. IMPRESSION: Bilateral lower lobe pneumonia. Follow-up to confirm resolution. Electronically signed by: Renuka Connor MD (12/18/2021 12:01 PM) [facility]
[2021-12-18 12:05] VITALS: BP 107/72
[2021-12-18 12:23] LABS: BASO % 0 % (0-3); EOS % 0 % (0-3); HEMATOCRIT 39.8 % (36.0-47.0); HEMOGLOBIN 13.6 g/dL (12.0-15.5); LYMPH # 0.7 x10^3/uL (1.0-4.8); LYMPH % 21 % (24-48); MEAN CORPUSCULAR HEMOGLOBIN 30 pg (25-35); MEAN CORPUSCULAR HGB CONC 34 g/dL (31-37); MEAN CORPUSCULAR VOLUME 87 fL (79-100); MONO # 0.2 x10^3/uL (0.0-1.1); MONO % 5 % (0-9); NEUT # 2.5 x10^3uL (1.8-7.7); NEUT % 73 % (31-73); PLATELET COUNT 164 x10^3/uL (140-400); RED BLOOD COUNT 4.56 x10^6/uL (3.50-5.40); RED CELL DISTRIBUTION WIDTH 12.9 % (11.5-14.5); WHITE BLOOD COUNT 3.5 x10^3/uL (4.0-11.0)
[2021-12-18 12:34] LABS: CALCIUM 8.2 mg/dL (8.5-10.1); CREATININE 0.6 mg/dL (0.6-1.0); GFR 115.9; POTASSIUM 3.5 mmol/L (3.5-5.1)
[2021-12-18 12:39] LABS: ALBUMIN 3.5 g/dL (3.4-5.0); TOTAL BILIRUBIN 0.5 mg/dL (0.2-1.0); TOTAL PROTEIN 6.9 g/dL (6.4-8.2)
[2021-12-18] MEDS ORDERED: AZITHROMYCIN 250 MG TABLET. PO ONE (13:00)
[2021-12-18] MEDS ORDERED: DOXY100T PO (13:09)
[2021-12-18] MEDS ORDERED: AMOX1TAB61 PO (13:09)
== END 2021-12-18 13:25 | disposition home or self-care (01) ==
LOC: ER 11:18
DX: J18.9 Pneumonia, unspecified organism (principal); U07.1 COVID-19; J45.909 Unspecified asthma, uncomplicated; Z88.2 Allergy status to sulfonamides
CPT/HCPCS: 36415; 71045; 80053; 84484; 85025; 93005; 99285